=== PATIENT | male | born 1985 | race African-American/Black ===

== ENCOUNTER 2018-09-27 19:29 | Emergency (ER) | payer OTHER ==
[~2018-09-27] VITALS: Ht 180.3 cm; Wt 96.2 kg
[~2018-09-27 19:29] MED LIST: ALBUTEROL INH; ALBUTEROL2.5 MG/31 IH; PREDNISONE 5 MG5 M1 PO; PREDNISONE50 MG PO; PROAIR HFA8.5 GM IH; ZPAK PO; [UNRECOGNIZED DRUG - OTHER]
[2018-09-27 21:46] LABS: URINE BILIRUBIN NEGATIVE (Negative); URINE BLOOD NEGATIVE (Negative); URINE CLARITY CLEAR; URINE COLOR YELLOW; URINE GLUCOSE-RANDOM* NEGATIVE (Negative); URINE KETONES NEGATIVE (Negative); URINE LEUKOCYTES-REFLEX NEGATIVE (Negative); URINE NITRITE-REFLEX NEGATIVE (Negative); URINE PROTEIN (DIPSTICK) TRACE (Negative); URINE SPECIFIC GRAVITY 1.025 (1.005-1.035)
[2018-09-27] MEDS ORDERED: NAPROSYN500 MG PO (21:49)
[2018-09-27 22:22] VITALS: BP 143/89
== END 2018-09-27 22:25 | disposition home or self-care (01) ==
LOC: ER 19:29
PROVIDERS: Emergency Medicine
DX: R10.2 Pelvic and perineal pain (principal); J45.909 Unspecified asthma, uncomplicated; Z87.891 Personal history of nicotine dependence; Z86.73 Personal history of transient ischemic attack (TIA), and cerebral infarction without residual deficits